=== PATIENT | male | born 1985 | race Hispanic/Latino ===

== ENCOUNTER 2017-10-31 13:57 | Emergency (ER) | payer SELFPAY ==
[~2017-10-31] VITALS: Ht 431.8 cm; Wt 85.0 kg
[2017-10-31] MEDS ORDERED: CHOLESTEROL MED PO (14:02)
[2017-10-31] MEDS ORDERED: KEFLEX500 MG PO (14:25)
[2017-10-31 14:54] VITALS: BP 130/70
== END 2017-10-31 14:50 | disposition home or self-care (01) | DRG 605 ==
LOC: ED 13:57
DX: S61.012A Laceration without foreign body of left thumb without damage to nail, initial encounter (principal); W27.8XXA Contact with other nonpowered hand tool, initial encounter; Y93.H3 Activity, building and construction; Y92.239 Unspecified place in hospital as the place of occurrence of the external cause